=== PATIENT | male | born 1990 | race Caucasian/White ===

== ENCOUNTER 2020-04-08 09:00 | Outpatient (RCR) | payer OTHER, SELFPAY ==
[2020-03-10 09:31] VITALS: BMI 23.3
== END 2020-05-25 14:01 | disposition home or self-care (01) ==
LOC: ANHDMC 09:00
PROVIDERS: PCP Family Medicine; Visit Provider Internal Medicine Endocrinology, Diabetes & Metabolism
DX: E10.9 Type 1 diabetes mellitus without complications (principal); Z71.3 Dietary counseling and surveillance; Z71.89 Other specified counseling
CPT/HCPCS: 97802; G0108

== ENCOUNTER 2021-10-21 14:15 | Outpatient (RCR) | payer OTHER, SELFPAY ==
[2021-09-09 11:06] VITALS: BMI 25.2
[2021-09-09 11:10] VITALS: BMI 25.2
== END 2021-12-08 23:59 | disposition home or self-care (01) ==
LOC: ANHDMC 14:15
PROVIDERS: PCP Family Medicine; Visit Provider Nurse Practitioner Family
DX: E10.9 Type 1 diabetes mellitus without complications (principal); Z71.3 Dietary counseling and surveillance; Z71.89 Other specified counseling
CPT/HCPCS: 97802; G0108

== ENCOUNTER 2022-08-15 15:45 | Outpatient (CLI) | payer OTHER, SELFPAY ==
[2022-08-15 15:59] LABS: Basophils Absolute Auto 0.1 K/mm3 (0.0-0.1); Basophils Percent Auto 0.9 % (0.2-1.2); Eosinophils Absolute Auto 1.1 K/mm3 (0-0.3); Eosinophils Percent Auto 12.7 % (0-4.4); Hematocrit 40.6 % (42.0-52.0); Hemoglobin 14.6 g/dL (14.0-18.0); Immature Granulocyte Absolute 0.01 K/mm3 (0.00-0.031); Immature Granulocyte Percent A 0.1 % (0-0.5); Lymphocytes Percent Auto 22.9 % (18.3-44.2); Mean Corpuscular Hemoglobin 30.8 pg (26-34); Mean Corpuscular Volume 85.7 fl (80-100); Mean Platelet Volume 9.6 fl (7.4-10.4); Monocytes Absolute Auto 0.5 K/mm3 (0.1-0.6); Monocytes Percent Auto 5.9 % (2.6-8.5); Neutrophils Percent Auto 57.5 % (45.5-73.1); Platelet Count Result 303 k/mm3 (150-375); Red Blood Count 4.74 M/mm3 (4.6-6.20); Red Cell Distribution Width 11.4 % (11.5-14.5); White Blood Count 8.7 K/mm3 (4.5-10.0)
[2022-08-15 16:36] LABS: Alanine Aminotransferase 44 U/L (6-50); Albumin Level 4.7 g/dL (3.5-5.1); Alkaline Phosphatase 112 U/L (38-126); Anion Gap 8 mmol/L (8-16); Aspartate Amino Transferase 35 U/L (17-59); Bilirubin,Total 0.6 mg/dL (0.2-1.3); Blood Urea Nitrogen 20 mg/dL (9-20); Calcium 9.1 mg/dL (8.4-10.2); Carbon Dioxide 30 mmol/L (22-30); Chloride 100 mmol/L (98-107); Estimated Glomerular Filt Rate > 60; Glucose 187 mg/dL (65-110); Potassium 3.8 mmol/L (3.4-5.0); Sodium 138 mmol/L (137-145)
== END 2022-08-15 15:46 | disposition home or self-care (01) ==
LOC: ANHLAB 15:48
PROVIDERS: PCP Family Medicine; Visit Provider Internal Medicine Hematology & Oncology
DX: D72.119 Hypereosinophilic syndrome [HES], unspecified (principal)
CPT/HCPCS: 36415; 80053; 85025

== ENCOUNTER 2023-03-02 09:44 | Emergency (ER) | payer OTHER, SELFPAY ==
--- NOTE | ~2023-03-02 | XR_ITS ---
EXAMINATION: XR hand RT min 3V DATE: 03/02/2023 10:12 INDICATION: Crush injury to the right hand TECHNIQUE: Posteroanterior, oblique and lateral views of the right hand were obtained. COMPARISON: None. FINDINGS: Intra-articular fractures of the right first distal phalanx and at the head of the first proximal pha lanx. The distal phalangeal fractures coronal oriented extending to the palmar/ulnar side of the gina cular surface. There is mild angulation with mild palmar and ulnar displacement of the proximal aspec t of the fracture fragment resulting in approximately 2 mm fracture gap and 1 mm step-off at the gina cular surface. The proximal phalangeal fracture involves the ulnar condyle of the head extending obli quely from the central aspect of the articular surface to the ulnar side of the neck of the phalanx. The fracture is mildly comminuted with a separate very small minimally displaced fracture fragment in volving the dorsal margin of the central articular surface. There is minimal compression of the radia l side of the ulnar condylar fragment which remains in near-anatomic alignment. Old healed fracture d eformity at the dorsal base of the third distal phalanx. No other acute fractures identified. Joint s paces are normal. IMPRESSION: 1. Minimal to mildly displaced intra-articular fracture at the right first proximal and distal phalan ges. Reviewed, dictated and finalized at location A. IMPRESSION: 1. Minimal to mildly displaced intra-articular fracture at the right first prox imal and distal phalanges.
[2023-03-02 09:52] VITALS: BP 129/81; PULSE 97; RESP 20; TEMP 36.2; O2SAT 100
[2023-03-02] MEDS: HYDROcodone/acetaminophen (*CRX) 5-325 MG TABLET 1 TAB PO (11:38)
[2023-03-02] MEDS: WATER, STERILE FOR INJECTION 10 ML VIAL XX (11:39)
[2023-03-02] MEDS: ceFAZolin SODIUM 1 GM VIAL IM (11:42)
[2023-03-02] MEDS: TETANUS,DIPHTHERIA,AC PERTUSSIS ADULT (0.5 ML) BOOSTRIX IM (11:42)
--- NOTE | 2023-03-02 11:53 | ED.UPPEXIN ---
HPI - Extremity Injury (Upper) General Chief Complaint: Extremity Injury, Upper Stated Complaint: hand injury Time Seen by Provider: 03/02/23 10:11 Source: patient Mode of arrival: ambulatory Limitations: no limitations History of Present Illness HPI narrative: Patient is a 33-year-old male who presents to the ED with report of right hand injury. Patient reports he was at work this morning and got his hand caught in between the bucket of a backhoe and a slab of concrete. He sustained a crush injury to his right hand and thumb. Sustained a large laceration in the webspace between his first and second digits. No other injuries. He does report slight tingling in his fingers. No numbness. Tetanus status unknown. He has not taken anything for pain prior to arrival. Related Data Home Medications Medication Instructions Recorded Confirmed ascorbic acid (vitamin C) 500 mg mg PO 01/19/23 01/19/23 capsule cholecalciferol (vitamin D3) 50 50 mcg PO DAILY 01/19/23 01/19/23 mcg (2,000 unit) capsule ferrous sulfate 325 mg (65 mg 325 mg PO DAILY 01/19/23 01/19/23 iron) tablet (Feosol) multivitamin 1 tablet PO DAILY 01/19/23 01/19/23 Allergies Allergy/AdvReac Type Severity Reaction Status Date / Time No Known Allergies Allergy Verified 01/19/23 10:35 Review of Systems Review of Systems: CONSTITUTIONAL: Denies fever, chills, or sweats. SKIN: See HPI. MUSCULOSKELETAL: See HPI. NEUROLOGIC: See HPI. All systems reviewed & are unremarkable except as noted in HPI and below PMFSH Past Medical History Medical History (Updated 03/02/23 @ 14:00 by Melissa Paul PA-C) Idiopathic hypereosinophilic syndrome Long-term insulin use Open fracture of right thumb Positive glutamic acid decarboxylase antibody Type 1 diabetes mellitus without complication Vitamin D deficiency Surgical History Surgical History History of knee surgery History of shoulder surgery Family History Family History Other Diabetes mellitus Family history of malignant neoplasm Family history of migraine headaches Social History Social History Smoking status: Never smoker Alcohol intake: current Alcohol use details: occasionally Substance use: never Lack of Transportation: No Lack of Food: Never True Current Housing: I Have Housing Concerned About Future Housing: No Difficulty Paying Gas/Electric Bills: No Difficulty Paying for Meds: No Currently Unemployed: No Education: Bachelor's Degree Difficulty w/ Childcare or Family Care: No Living arrangements: with family Occupation/Education: occupation Gender identity (if verbalized by the patient): Male Sexual Orientation (if Verbalized by the Patient): Straight or Heterosexual Spiritual care concerns: No Exam Narrative: GENERAL: Well appearing, well-nourished, non-toxic, in no acute distress. HEAD: Normocephalic, atraumatic. NECK: Supple. No adenopathy, no masses. RESPIRATORY: Airway patent, respirations nonlabored. CARDIOVASCULAR: Regular rate and rhythm without murmurs, rubs, or gallops. Radial pulses 2+ and equal bilaterally. MUSCULOSKELETAL: Limited range of motion of right thumb due to pain, but still able to flex/abduct/extend. Tenderness to palpation diffusely throughout right thumb, worse distally and medially along finger. Large, at least 4cm laceration in webspace between first and second digits, somewhat jagged edges but overall approximates well. No significant active bleeding. No pulsatile bleeding. Sensation intact throughout all digits. Good capillary refill through digits. SKIN: Warm, dry, normal color. No rashes. NEURO: A&O X3. Speech clear. Cranial nerves II-XII grossly intact. Steady gait. No ataxic movements. PSYCHIATRIC: Appropriate mood an
--- NOTE | 2023-03-08 07:15 | PC.NURSE ---
LATE ENTRY. ON Feb VORB METAL FINGER SPLINT PER KAYLAH CHEEMA
== END 2023-03-02 14:15 | disposition home or self-care (01) ==
PROVIDERS: Emergency Provider Physician Assistant; PCP Family Medicine
DX: S62.511B Displaced fracture of proximal phalanx of right thumb, initial encounter for open fracture (principal); S62.511A Displaced fracture of proximal phalanx of right thumb, initial encounter for closed fracture; Z23 Encounter for immunization; E10.9 Type 1 diabetes mellitus without complications; E55.9 Vitamin D deficiency, unspecified; D72.110 Idiopathic hypereosinophilic syndrome [IHES]; W31.89XA Contact with other specified machinery, initial encounter
CPT/HCPCS: 12002; 29130; 73130; 90471; 90715; 96372; 99284; A9270; J0690

== ENCOUNTER 2023-03-20 09:49 | Outpatient (CLI) | payer OTHER, SELFPAY ==
--- NOTE | ~2023-03-20 | XR_ITS ---
XR finger 1st RT min 2V 03/20/2023 10:16 Indication: Right first finger pain Procedure: 3 views right first finger Comparison: 03/02/2023 Findings: There is an avulsion fracture of the first proximal phalangeal head. There is an intra-gina cular fracture of the proximal phalanx. There is a nondisplaced intra-articular fracture of the dista l phalanx. Fracture fragments in stable alignment. Impression: 1: Stable mildly displaced intra-articular fractures of the right first finger involving the distal a spect of the proximal phalanx and distal phalanx. Reviewed, dictated and finalized at location B. Impression: 1: Stable mildly displaced intra-articular fractures of the right first finger involving the distal aspect of the proximal phalanx and distal phalanx.
== END 2023-03-20 09:50 | disposition home or self-care (01) ==
PROVIDERS: PCP Family Medicine; Visit Provider Plastic Surgery
DX: S62.501B Fracture of unspecified phalanx of right thumb, initial encounter for open fracture (principal); X58.XXXA Exposure to other specified factors, initial encounter
CPT/HCPCS: 73140

== ENCOUNTER 2023-04-10 09:05 | Outpatient (CLI) | payer OTHER, SELFPAY ==
--- NOTE | ~2023-04-10 | XR_ITS ---
XR finger 1st RT min 2V DATE: 04/10/2023 09:24 INDICATION: Open fracture 6 weeks ago TECHNIQUE: 3 views COMPARISON: 03/20/2023 right first digit 03/02/2023 right hand FINDINGS: There is healing at the fracture at the head of the proximal phalanx and base of the distal phalanx of the first digit, the fracture lines are partially obliterated, with residual fracture def ormity of the base of the distal phalanx. No other fracture or dislocation or other significant bony or soft tissue abnormality. IMPRESSION: Advanced healing of fracture of the head of the proximal phalanx and base of the distal p halanx Reviewed, dictated and finalized at location B. IMPRESSION: Advanced healing of fracture of the head of the proximal phalanx an d base of the distal phalanx
== END 2023-04-10 09:06 | disposition home or self-care (01) ==
PROVIDERS: PCP Family Medicine; Visit Provider Plastic Surgery
DX: S62.501D Fracture of unspecified phalanx of right thumb, subsequent encounter for fracture with routine healing (principal); X58.XXXD Exposure to other specified factors, subsequent encounter
CPT/HCPCS: 73140

== ENCOUNTER 2023-05-19 11:15 | Outpatient (RCR) | payer OTHER, SELFPAY ==
--- NOTE | 2023-03-14 13:06 | OTOPEVAL1 ---
Assessment and note entered by RODRIGO Junior/Fernanda, CHT Evaluation Information Assessment Status Evaluation Diagnosis Right thumb fracture Subjective Information Patient referred for custom thumb spica orthotic. He is right handed. Pt's proximal and distal phalanx were fractured in a crush injury on . Reported Pain Level Pain Score 4: Self Report Assessment OT Clinical Summary Patient referred to outpatient OT with right thumb fracture. He presents today for fabrication of a custom thumb spica orthotic. A well-fitting, long thumb spica orthotic was fabricated to include the distal phalanx of the thumb. He demonstrates good understanding of wear time - at all times, except for daily hand hygiene. No follow up visits scheduled at this time, but plan to leave his care plan open x4 weeks to allow him to return for any splinting adjustments PRN. Plan of Care Interventions Check Out for Orthotic/Pr OT Services Indicated Yes Treatment Frequency and 0-1x/week for 4 weeks Duration These treatments will address the objective and functional deficits as defined above. The patient will be advanced safely and appropriately in order for the patient to progress towards his/her prior level of function. Additional exercises will be introduced and as well as a comprehensive home exercise program upon discharge, if needed, ?to ensure carryover of functional gains achieved in the clinic. This treatment plan has been reviewed and agreement upon by the patient.
--- NOTE | 2023-04-12 11:43 | OTOPPROG ---
Assessment and note entered by Shahid Cronin, RODRIGO/Fernanda, CHT Progress Update 04/12/23 Diagnosis Right thumb fracture Subjective Information Pt's proximal and distal phalanx of the right thumb were fractured in a crush injury on 03/02/23. He is s/p immobilization and ready to begin formal therapy. He states he has been trying to use the thumb. He is unable to pinch and open bags. Assessment OT Clinical Summary Patient referred to outpatient OT x6 weeks out from right thumb fracture. He has been instructed in ROM HEP and demonstrates excellent understanding of the exercises. Continued skilled OT indicated to progress HEP, for functional therapeutic exercises/activities, and use of modalities to facilitate optimal functional use of the right thumb/hand. Plan of Care Interventions Therapeutic Exercise,Manual Therapy,Therapeutic Activities,Paraffin OT Services Indicated Yes Treatment Frequency and 1x/week for 4 weeks Duration These treatments will address the objective and functional deficits as defined above. The patient will be advanced safely and appropriately in order for the patient to progress towards his/her prior level of function. Additional exercises will be introduced and as well as a comprehensive home exercise program upon discharge, if needed, ?to ensure carryover of functional gains achieved in the clinic. This treatment plan has been reviewed and agreement upon by the patient.
--- NOTE | 2023-04-12 11:43 | OPREHPOC ---
Outpatient Therapy Plan of Care This is a Multidisciplinary Plan of Care that may contain components documented by all disciplines (PT, OT, and ST.) OT Problem 1 OT Problem #1 Knowledge Deficit OT Goal 1 Goal 1. Patient to be independent with splint wearing schedule. 2. Patient to continue to report good splint fit. ---OT POC UPDATE 04/12/23--- 1. Met; Splint is D/C'd; D/C goal 2. Met; Splint is D/C'd; D/C goal New Knowledge Deficit Goal: 1. Patient to be independent with instructed materials. Target Visit 6 OT Problem 2 OT Problem #2 Impaired Range of Motion OT Goal 1 Goal ---OT POC UPDATE 04/12/23--- New ROM Goals: 1. Patient to be able to touch the base of digit V with the tip of the right thumb. 2. Patient to be able to flex the right thumb IP joint 50 degrees. Target Visit 6 OT Goal 1 Goal ---OT POC UPDATE 04/12/23--- New Strength Goal: 1. Patient to be able to complete strategic marketing leader and pinch strengthening with at least yellow theraputty x5 minutes without pain. Target Visit 6
--- NOTE | 2023-05-09 12:43 | PCOTNOTE ---
Patient called and cancelled due to not feeling well.
--- NOTE | 2023-05-19 11:47 | OTOPDC ---
Assessment and note entered by Shahid Cronin, SANJUANAR/Fernanda, T Discharge Summary 05/19/23 Diagnosis Right thumb fracture Subjective Information Pt's proximal and distal phalanx of the right thumb were fractured in a crush injury on 03/02/23. He is right handed. He reports residual stiffness , weakness, and pain with pinching/use. He states he is now able to pinch and open bags about 80% of the time. Reports there are times when he picks up items and he has to drop them because of the pain. Assessment OT Clinical Summary Patient presents today, ~9 weeks following right thumb fracture. He continues to demonstrate stiffness at the IP joint, progressing only 5 more degrees in the last month, measuring a 30 deg. bend. Passively he is able to achieve 40 degrees. Emphasized continuation of stretching exercises followed by pinches into the putty with the focus on IP flexion. He demonstrates excellent understanding of all materials. Discharging today with patient independent with HEP.
== END 2023-05-19 14:44 | disposition home or self-care (01) ==
LOC: ANHOT 11:15
PROVIDERS: PCP Family Medicine; Visit Provider Plastic Surgery
DX: S62.501B Fracture of unspecified phalanx of right thumb, initial encounter for open fracture (principal)
CPT/HCPCS: 97018; 97110; 97140; 97165; L3806

== ENCOUNTER 2023-08-07 16:43 | Outpatient (CLI) | payer OTHER, SELFPAY ==
--- NOTE | ~2023-08-07 | XR_ITS ---
EXAM: XR finger 1st RT min 2V DATE: 08/07/2023 16:52 HISTORY: S62.501B - Fracture of unspecified phalanx of right thumb... . COMPARISON: 04/10/2023. FINDINGS: Normal mineralization. Continued evolving healing change of the fractures at the distal en d of the right first proximal phalanx and base of the right first distal phalanx No new acute fractur e or dislocation. No lytic or blastic lesion. Mild degenerative change in the thumb. No erosion or pe riosteal change. Soft tissues within normal limits. IMPRESSION: Continued evolving healing of the right proximal and distal phalanx fractures. Reviewed, dictated and finalized at location K. AXIAL REACTOR OPERATOR
== END 2023-08-07 16:44 | disposition home or self-care (01) ==
LOC: ANHIMG 16:44
PROVIDERS: PCP Family Medicine; Visit Provider Physician Assistant Surgical
DX: S62.501D Fracture of unspecified phalanx of right thumb, subsequent encounter for fracture with routine healing (principal); X58.XXXD Exposure to other specified factors, subsequent encounter
CPT/HCPCS: 73140

== ENCOUNTER 2023-08-11 16:18 | Outpatient (CLI) | payer OTHER, SELFPAY ==
--- NOTE | ~2023-08-11 | CT_ITS ---
EXAMINATION: CT hand RT wo con DATE: 08/11/2023 16:40 INDICATION: Fracture of unspecified phalanx of right thumb. TECHNIQUE: Computed tomography (CT) of the right hand was performed without intravenous contrast. Aut omated exposure control and iterative reconstruction technique were employed. The dose-length product was 536.91 mGy-cm. COMPARISON: Right thumb radiographs 08/07/2023, 03/20/2023 FINDINGS: Bone alignment is normal. No acute fracture. There is an old healed fracture of base of thi rd distal phalanx. There are old healed fracture deformities of the head of first proximal phalanx an d base of first distal phalanx. There is severe nonuniform joint space narrowing of first interphalan geal joint. There are small calcifications at radial aspect of first interphalangeal joint. IMPRESSION: 1. 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 Reviewed, dictated and finalized at location A. ITY ASSURANCE SUPERVISOR TRIM
== END 2023-08-11 16:19 | disposition home or self-care (01) ==
LOC: ANHIMG 16:18
PROVIDERS: PCP Family Medicine; Visit Provider Physician Assistant Surgical
DX: S62.501B Fracture of unspecified phalanx of right thumb, initial encounter for open fracture (principal); X58.XXXA Exposure to other specified factors, initial encounter; M19.041 Primary osteoarthritis, right hand
CPT/HCPCS: 73200

== ENCOUNTER 2023-12-28 05:52 | Day surgery (SDC) | payer OTHER, SELFPAY ==
[2023-12-18 11:55] VITALS: BMI 28.8
--- NOTE | 2023-12-19 13:23 | PC.NURSE ---
1230; NO NEED FOR PREOP BMP FOR LUANN WAYNE PER DR WASHINGTON.
--- NOTE | ~2023-12-28 | XR_ITS ---
XR surgery orthopedic Indication: Right thumb flexor tenolysis TECHNIQUE: Fluoroscopy used during Right thumb flexor tenolysis performed by [Nikkie suazo MD] on 12/28/2023. 29 seconds of fluoroscopy time with 3 fluoroscopic images captured. FINDINGS: Correlate with procedure note. IMPRESSION: Fluoroscopy used during Right thumb flexor tenolysis. Reviewed, dictated and finalized at location B.
[2023-12-28 06:30] VITALS: BP 136/75; PULSE 68; RESP 16; TEMP 36.8; O2SAT 98; BMI 28.2
[2023-12-28 06:54] LABS: Glucose Point of Care 108 mg/dl (65-105)
--- NOTE | 2023-12-28 07:01 | P.HPUP_ITS ---
History and Physical Update Update Date/Time: 12/28/23 07:01 Patient seen and examined in pre-operative holding area. No interval change in medical history or symptoms. Patient recalls previous discussion of benefits and alternatives to procedure. Continues to desire to proceed with right thumb exploration, possible capsulotomy, possible tenolysis, possible ostectomy . Reviewed procedure, post-op expectations and risks including but not limited to bleeding, infection, injury to tendon/nerve/vessel, decreased hand function, stiffness, RSD, no change or worsening of symptoms. I discussed the possible use of assistants and their participation in the case. Patient stated unders tanding and signed the consent form wishing to proceed.
--- NOTE | 2023-12-28 07:03 | P.OP_ITS ---
Procedure Note - Detailed Date of Procedure 12/28/23 Pre-op Diagnosis Fracture malunion and stiffness right thumb distal phalanx Post-op Diagnosis Same Procedure Performed right thumb exploration, possible capsulotomy, possible tenolysis, possibleostectomy . Surgeon Nikkie Ledezma MD Adjustment Supervisor reshma ortiz pa-c Anesthesia MAC Description of Procedure INFORMED CONSENT: The patient was seen and examined and marked in the pre-op area.? The patient signed the consent form. PROCEDURE IN DETAIL:The patient taken back to OR on the stretcher in supine position. Time out performed with anesthesia, surgeon and staff agreeing on patient's name site and surgery to be performed SCDs were placed on the lower extremities and inflated. A tourniquet was placed on {right} upper extremity and antibiotics given IV After anesthesia administered sedation I injected {4}cc 1%lido and 0.5% marcaine plain for digital block in the palm The?{right upper extremity}?was prepped and draped in sterile fashion the??{right upper extremity/} was? exsanguinated with Esmarch bandage and tourniquet inflated to 250mmHg Proceeded with making a Penny incision on the volar aspect of the right thumb over the IP joint with a 15 blade scalpel through skin and dermis. Littler scissors were used to spread down to the flexor tendon sheath. There was notable adherence of the skin flap to the flexor sheath. I made an incision in the distal portion of the A2 john and flexor sheath distally with a 15 blade scalpel. This was reflected to expose the intact FPL tendon. tenolysis was performed of the FPL off the volar plate. Ragnell retractor was used to retract the tendon to expose the volar plate. The volar plate was notably thickened and tight. I proceeded with release of the volar plate from its proximal insertion elevating it distally to expose the IP joint. Visualizing the articular surface there was a small prominent healed bone fragment or osteophyte that appeared to be creating a partial bony block with attempted flexion. This proud edge of the volar distal phalanx articular surface was rongeured until smooth. Mini C-arm fluoroscopy was used to visualize the joint which appeared reasonably congruent the with traumatic deformity. There appeared to be improved range of motion with flexion. It now appeared that around 50? of flexion was possible. I irrigated with normal saline. Using a 15 blade scalpel i thinned the volar plate with tangential excision to debulk it. I proceeded with suturing the volar plate back to the proximal phalanx with 4-0 Vicryl. This did not affect the range of motion. I repaired the flexor sheath/A2 john with 4-0 Vicryl suture. Using a Ragnell retractor to withdraw the FPL tendon proximally was able to achieve similar flexion range of motion. I irrigated with normal saline and closed skin with 4-0 chromic. A dressing of xeroform, 4x4, keeley and asher after the tourniquet was let down noting the hand was warm and well perfused. The patient was then awaken from anesthesia and transferred to the recovery room in stable condition.? Complications - none EBL- 0cc Disposition - home in stable conditions reshma ortiz pa-c was essential for positioniing, retraction, closure and dressing placement G Billing Surgery - Charge Forward: Surgery Billing ([id number] same for reshma whitney )
--- NOTE | 2023-12-28 07:03 | PM.HPGS ---
History of Present Illness History of Present Illness Chief complaint: Fracture of unspecified Phalanx Right Thumb Narrative: Patient seen and examined in pre-operative holding area. No interval change in medical history or symptoms. Patient recalls previous discussion of benefits and alternatives to procedure. Continues to desire to proceed with right thumb exploration, possible capsulotomy, possibletenolysis, possibleostectomy . Reviewed procedure, post-op expectations and risks including but not limited to bleeding, infection, injury to tendon/nerve/vessel, decreased hand function, stiffness, RSD, no change or worsening of symptoms. I discussed the possible use of assistants and their participation in the case. Patient stated understanding and signed the consent form wishing to proceed. Review of Systems Review of Systems: All systems reviewed & are unremarkable except as noted in HPI and below PMFSH Past Medical History Medical History Idiopathic hypereosinophilic syndrome Long-term insulin use Open fracture of right thumb Positive glutamic acid decarboxylase antibody Type 1 diabetes mellitus without complication Vitamin D deficiency Surgical History Surgical History History of knee surgery History of shoulder surgery Family History Family History Other Diabetes mellitus Family history of malignant neoplasm Family history of migraine headaches Social History Social History Smoking status: Never smoker Second hand tobacco smoke exposure: No Alcohol intake: current Drinks per week: 5 Alcohol use details: occasionally Substance use: never Substance use type: does not use Lack of Transportation: No Lack of Food: Never True Current Housing: I Have Housing Concerned About Future Housing: No Difficulty Paying Gas/Electric Bills: No Difficulty Paying for Meds: No Currently Unemployed: No Education: Bachelor's Degree Difficulty w/ Childcare or Family Care: No Living arrangements: with family Occupation/Education: occupation Gender identity (if verbalized by the patient): Male Sexual Orientation (if Verbalized by the Patient): Straight or Heterosexual Spiritual care concerns: No Meds Home Medications and Allergies Home Medications Medication Instructions Recorded Confirmed Type blood ketone glucose monitor #1 ea 02/03/20 11/30/23 Rx blood-glucose meter #1 ea 03/09/20 11/30/23 Rx lancets 33 gauge (BD Ultra Fine #300 ea 03/09/20 11/30/23 Rx Lancets) glucagon 3 mg/actuation nasal spray 3 mg intranasal ONCE #2 ea 08/29/22 12/28/23 Rx ascorbic acid (vitamin C) 500 mg 500 mg PO DAILY 01/19/23 12/28/23 History capsule cholecalciferol (vitamin D3) 50 50 mcg PO DAILY 01/19/23 12/28/23 History mcg (2,000 unit) capsule ferrous sulfate 325 mg (65 mg 325 mg PO DAILY 01/19/23 12/28/23 History iron) tablet (Feosol) multivitamin 1 tablet PO DAILY 01/19/23 12/28/23 History blood-glucose meter,continuous #1 ea 11/30/23 11/30/23 Rx (Dexcom G6 Extraction Operator) blood-glucose sensor (Dexcom G6 #3 ea 11/30/23 11/30/23 Rx Sensor device) blood-glucose transmitter (Dexcom #1 ea 11/30/23 11/30/23 Rx G6 Transmitter device) insulin degludec 100 unit/mL 30 unit (0.3 mL) subcut DAILY PRN 11/30/23 12/28/23 Rx subcutaneous solution (Tresiba insulin pump malfunction #10 mL U-100 Insulin) insulin lispro 100 unit/mL See Rx Instructions .Route 11/30/23 12/28/23 Rx subcutaneous solution (Humalog .COMPLEX #90 mL U-100 Insulin) insulin pump cart,automated,BT #60 ea 11/30/23 11/30/23 Rx (Omnipod 5 G6 Pods (Gen 5) subcutaneous cartridge) Allergies Allergy/AdvReac Type Severity Reaction Status Date / Time No Known Allergies Allergy Verified 0
--- NOTE | 2023-12-28 07:19 | WPDANESEPPF ---
Anes - Initial Pre Proc Eval Procedure: Operation Date: 12/28/23 07:30 Proposed Procedures p Right Thumb Flexor Tenolysis, Possible Osteophyte Excision - Nikkie Ledezma MD Date/Time: 12/28/23 07:19 Surgeon: Nikkie Ledezma MD Pre Op Diagnosis: right thumb fracture Pre Op Diagnosis: Fracture of unspecified Phalanx Right Thumb Patient Data Age: 33 Gender: M Height: 1.83 m Weight: 94.4 kg Last Vital Signs Temp 36.8 C 12/28/23 06:30 Pulse 68 12/28/23 06:30 Resp 16 12/28/23 06:30 BP 136/75 12/28/23 06:30 Pulse Ox 98 12/28/23 06:30 O2 Del Method Room Air 12/28/23 06:30 Allergies Allergy/AdvReac Type Severity Reaction Status Date / Time No Known Allergies Allergy Verified 12/28/23 06:18 Home Medications Medication Instructions Recorded Confirmed Type blood ketone glucose monitor #1 ea 02/03/20 11/30/23 Rx blood-glucose meter #1 ea 03/09/20 11/30/23 Rx lancets 33 gauge (BD Ultra Fine #300 ea 03/09/20 11/30/23 Rx Lancets) glucagon 3 mg/actuation nasal spray 3 mg intranasal ONCE #2 ea 08/29/22 12/28/23 Rx ascorbic acid (vitamin C) 500 mg 500 mg PO DAILY 01/19/23 12/28/23 History capsule cholecalciferol (vitamin D3) 50 50 mcg PO DAILY 01/19/23 12/28/23 History mcg (2,000 unit) capsule ferrous sulfate 325 mg (65 mg 325 mg PO DAILY 01/19/23 12/28/23 History iron) tablet (Feosol) multivitamin 1 tablet PO DAILY 01/19/23 12/28/23 History blood-glucose meter,continuous #1 ea 11/30/23 11/30/23 Rx (Dexcom G6 Edge Bander Hand) blood-glucose sensor (Dexcom G6 #3 ea 11/30/23 11/30/23 Rx Sensor device) blood-glucose transmitter (Dexcom #1 ea 11/30/23 11/30/23 Rx G6 Transmitter device) insulin degludec 100 unit/mL 30 unit (0.3 mL) subcut DAILY PRN 11/30/23 12/28/23 Rx subcutaneous solution (Tresiba insulin pump malfunction #10 mL U-100 Insulin) insulin lispro 100 unit/mL See Rx Instructions .Route 11/30/23 12/28/23 Rx subcutaneous solution (Humalog .COMPLEX #90 mL U-100 Insulin) insulin pump cart,automated,BT #60 ea 11/30/23 11/30/23 Rx (Omnipod 5 G6 Pods (Gen 5) subcutaneous cartridge) Laboratory Tests 12/28/23 06:52 POC Capillary Glucose 108 H mg/dl (65-105) Patient hx anesthesia problems: none Family hx anesthesia problems: none Results Review: All pre-operative results and documents have been reviewed as part of the pre-operative evaluation. [facility] Past Medical History Medical History Idiopathic hypereosinophilic syndrome Long-term insulin use Open fracture of right thumb Positive glutamic acid decarboxylase antibody Type 1 diabetes mellitus without complication Vitamin D deficiency Surgical History Surgical History History of knee surgery History of shoulder surgery Family History Family History Other Diabetes mellitus Family history of malignant neoplasm Family history of migraine headaches Social History Social History Smoking status: Never smoker Second hand tobacco smoke exposure: No Alcohol intake: current Drinks per week: 5 Alcohol use details: occasionally Substance use: never Substance use type: does not use Lack of Transportation: No Lack of Food: Never True Current Housing: I Have Housing Concerned About Future Housing: No Difficulty Paying Gas/Electric Bills: No Difficulty Paying for Meds: No Currently Unemployed: No Education: Bachelor's Degree Difficulty w/ Childcare or Family Care: No Living arrangements: with family Occupation/Education: occupation Gender identity (if verbalized by the patient): Male Sexual Orientation (if Verbalized by the Patient): Straight or Heterosexual Spiritual care concerns: No Anes - Charlene
[2023-12-28] MEDS: LACTATED RINGERS 1,000 ML 30 ML IV CONT (07:24)
[2023-12-28] MEDS: ceFAZolin SODIUM 2 GM/20 ML SW SYRINGE IV PUSH (07:29)
[2023-12-28] MEDS: LIDOCAINE HCL 1% LOCAL INJ 10 ML VIAL INFILTRATE (07:34)
[2023-12-28] MEDS: BUPivacaine HCL 0.5% 10 ML AMP INFILTRATE (07:34)
[2023-12-28 08:24] VITALS: BP 105/50; PULSE 65; RESP 16; TEMP 36.3; O2SAT 99
[2023-12-28 08:34] VITALS: BP 119/57; PULSE 71; RESP 16; O2SAT 98
[2023-12-28 08:44] VITALS: BP 118/70; PULSE 76; RESP 16; O2SAT 97
[2023-12-28 08:45] LABS: Glucose Point of Care 85 mg/dl (65-105)
--- NOTE | 2023-12-28 09:33 | WPDANESPN ---
Anes - Prog Note Post-Op Date/Time: 12/28/23 09:33 Cardiovascular status: normal Respiratory status: normal Airway patency: baseline Mental status: baseline Post-Op hydration status: normal Vital Signs: Last Vital Signs Temp 36.3 C L 12/28/23 08:24 Pulse 76 12/28/23 08:44 Resp 16 12/28/23 08:44 BP 118/70 12/28/23 08:44 Pulse Ox 97 12/28/23 08:44 O2 Del Method Room Air 12/28/23 08:44 Pain Score (VAS): 0/10 I/O: Intake & Output 12/27/23 12/28/23 12/28/23 23:59 07:59 15:59 Intake Total 50 Balance 50 12/28/23 12/28/23 06:52 08:41 POC Capillary Glucose 108 H 85 Patient Feedback: Patient satisfied with anesthetic care.
== END 2023-12-28 09:02 | disposition home or self-care (01) ==
PROVIDERS: PCP Family Medicine; Visit Provider Plastic Surgery
PROC: (CPT 25447; principal; 2023-12-28 07:30)
DX: S62.511 Displaced fracture of proximal phalanx of right thumb (principal); M25.641 Stiffness of right hand, not elsewhere classified
CPT/HCPCS: 26440; 26210; 99199

== ENCOUNTER 2024-03-12 09:44 | Outpatient (CLI) | payer OTHER, SELFPAY ==
--- NOTE | ~2024-03-12 | XR_ITS ---
XR finger 1st RT min 2V Ordering provider: Magalys Lim PA-C History: . Fracture of unspecified phalanx of right thumb . Comparison: August 07, 2023 FINDINGS: BONES: No acute fracture or dislocation. JOINT SPACES: Normal. SOFT TISSUES: Normal. IMPRESSION: No acute osseous abnormality. Reviewed, dictated and finalized at location A.
== END 2024-03-12 09:45 | disposition home or self-care (01) ==
PROVIDERS: PCP Family Medicine; Visit Provider Physician Assistant Surgical
DX: S62.501B Fracture of unspecified phalanx of right thumb, initial encounter for open fracture (principal); X58.XXXA Exposure to other specified factors, initial encounter
CPT/HCPCS: 73140

== ENCOUNTER 2024-08-12 01:56 | Day surgery (SDC) | payer OTHER, SELFPAY ==
[2024-07-30 13:49] VITALS: BMI 27.8
[2024-08-12 13:16] VITALS: BP 128/76; PULSE 69; RESP 18; TEMP 36.1; O2SAT 99
[2024-08-12] MEDS: LACTATED RINGERS 1,000 ML 150 ML IV CONT (13:27)
--- NOTE | 2024-08-12 13:46 | WPDANESEPPF ---
Anes - Initial Pre Proc Eval Procedure: Operation Date: 08/12/24 14:30 Proposed Procedures p Esophagogastroduodenoscopy - Indio Dotson MD Date/Time: 08/12/24 13:46 Surgeon: Indio Dotson MD Pre Op Diagnosis: Eosinophilia,Dyshagia Patient Data Age: 34 Gender: M Height: 1.85 m Weight: 96.3 kg Last Vital Signs Temp 36.1 C L 08/12/24 13:16 Pulse 69 08/12/24 13:16 Resp 18 08/12/24 13:16 BP 128/76 08/12/24 13:16 Pulse Ox 99 08/12/24 13:16 O2 Del Method Room Air 08/12/24 13:16 Allergies Allergy/AdvReac Type Severity Reaction Status Date / Time No Known Allergies Allergy Verified 08/12/24 13:15 Home Medications ?Medication ?Instructions ?Recorded ?Confirmed ?Type blood ketone glucose monitor #1 ea 02/03/20 07/30/24 Rx blood-glucose meter #1 03/09/20 07/30/24 Rx lancets 33 gauge (BD Ultra Fine #300 ea 03/09/20 07/30/24 Rx Lancets) glucagon 3 mg/actuation nasal spray 3 mg intranasal ONCE #2 ea 08/29/22 07/30/24 Rx ascorbic acid (vitamin C) 500 mg 500 mg PO DAILY 01/19/23 08/12/24 History capsule cholecalciferol (vitamin D3) 50 50 mcg PO DAILY 01/19/23 08/12/24 History mcg (2,000 unit) capsule ferrous sulfate 325 mg (65 mg 325 mg PO DAILY 01/19/23 08/12/24 History iron) tablet (Feosol) multivitamin 1 tablet PO DAILY 01/19/23 08/12/24 History blood-glucose meter,continuous #1 ea 11/30/23 07/30/24 Rx (Dexcom G6 As400 Programmer) blood-glucose sensor (Dexcom G6 #3 ea 11/30/23 07/30/24 Rx Sensor device) blood-glucose transmitter (Dexcom #1 ea 11/30/23 07/30/24 Rx G6 Transmitter device) insulin pump cart,automated,BT #60 11/30/23 07/30/24 Rx (Omnipod 5 G6 Pods (Gen 5) subcutaneous cartridge) blood sugar diagnostic (OneTouch #100 ea 07/29/24 07/30/24 Rx Verio test strips) blood-glucose meter (OneTouch #1 ea 07/29/24 07/30/24 Rx Verio Flex Start kit) insulin lispro 100 unit/mL See Rx Instructions .Route 07/29/24 08/12/24 Rx subcutaneous solution (Humalog .COMPLEX #90 mL U-100 Insulin) lancets 33 gauge (OneTouch Delica #100 ea 07/29/24 07/30/24 Rx Plus Lancet) urine glucose-ketones test #50 ea 07/29/24 07/30/24 Rx Tresiba FlexTouch U-200 200 30 unit (0.15 mL) subcut DAILY PRN 07/30/24 08/12/24 Rx unit/mL (3 mL) subcutaneous pen insulin pump malfunction #9 mL (insulin degludec) Patient hx anesthesia problems: none Family hx anesthesia problems: none Results Review: All pre-operative results and documents have been reviewed as part of the pre-operative evaluation. 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 Surgical History Surgical History History of knee surgery History of shoulder surgery Family History Family History Other Diabetes mellitus Family history of malignant neoplasm Family history of migraine headaches Social History Social History Social History: Caffeine-coffee Smoking status: Never smoker Second hand tobacco smoke exposure: No Alcohol intake: current Drinks per week: 5 Alcohol use details: occasionally Substance use: never Substance use type: does not use Lack of Transportation: No Lack of Food: Never True Current Housing: I Have Housing Concerned About Future Housing: No Difficulty Paying Gas/Electric Bills: No Difficulty Paying for Meds: No Currently Unemployed: No Education: Bachelor's Degree Difficulty w/ Childcare or Family Care: No Living arrangements: with family Occupation/Education: occupation Gender identity (if verbalized by the patient): Male Sexual Orientation (if Verbalized by the Patient): Straight or Heterosexual Spiritual care concerns: No Anes - Eval Final PreProcedure Day of Procedure 08/12/24 13:46 Patient weight: overweight Heart: regular rate and rhythm Lungs: clear to auscultation Airway: Mallampati scale class II Neurological: alert and oriented Last oral intake: >/= 8 hours ASA classification: II Emergent: no Anesthetic plan: proceed Anesthesia type and monitoring: general GIVS and standard monitoring Results Review: All pre-operative results and documents have been reviewed as part of the pre-operative evaluation. Informed Consent: The patient's anesthetic plan and its attendant risks and benefits were discussed with the patient/family/POA. Questions were solicited and answers provided to the satisfaction of the patient/family/POA.
--- NOTE | 2024-08-12 14:05 | PM.HPGS ---
History of Present Illness History of Present Illness Consent: Risks, benefits, and alternatives have been discussed and questions answered. Patient agrees to proceed with procedure. Chief complaint: Eosinophilia,Dyshagia Narrative: Michael Person is a 34 year old male with dysphagia, had EGD about 15 years ago. Also diagnosed in the past with high eosinophils and treated previously with steroids, he is not receiving any medication now. 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 Surgical History Surgical History History of knee surgery History of shoulder surgery Family History Family History Other Diabetes mellitus Family history of malignant neoplasm Family history of migraine headaches Social History Social History Social History: Caffeine-coffee Smoking status: Never smoker Second hand tobacco smoke exposure: No Alcohol intake: current Drinks per week: 5 Alcohol use details: occasionally Substance use: never Substance use type: does not use Lack of Transportation: No Lack of Food: Never True Current Housing: I Have Housing Concerned About Future Housing: No Difficulty Paying Gas/Electric Bills: No Difficulty Paying for Meds: No Currently Unemployed: No Education: Bachelor's Degree Difficulty w/ Childcare or Family Care: No Living arrangements: with family Occupation/Education: occupation Gender identity (if verbalized by the patient): Male Sexual Orientation (if Verbalized by the Patient): Straight or Heterosexual Spiritual care concerns: No Meds Home Medications and Allergies Home Medications ?Medication ?Instructions ?Recorded ?Confirmed ?Type blood ketone glucose monitor #1 02/03/20 07/30/24 Rx blood-glucose meter #1 03/09/20 07/30/24 Rx lancets 33 gauge (BD Ultra Fine #300 ea 03/09/20 07/30/24 Rx Lancets) glucagon 3 mg/actuation nasal spray 3 mg intranasal ONCE #2 08/29/22 07/30/24 Rx ascorbic acid (vitamin C) 500 mg 500 mg PO DAILY 01/19/23 08/12/24 History capsule cholecalciferol (vitamin D3) 50 50 mcg PO DAILY 01/19/23 08/12/24 History mcg (2,000 unit) capsule ferrous sulfate 325 mg (65 mg 325 mg PO DAILY 01/19/23 08/12/24 History iron) tablet (Feosol) multivitamin 1 tablet PO DAILY 01/19/23 08/12/24 History blood-glucose meter,continuous #1 ea 11/30/23 07/30/24 Rx (Dexcom G6 Cutting Machine Operator Helper) blood-glucose sensor (Dexcom G6 #3 ea 11/30/23 07/30/24 Rx Sensor device) blood-glucose transmitter (Dexcom #1 ea 11/30/23 07/30/24 Rx G6 Transmitter device) insulin pump cart,automated,BT #60 ea 11/30/23 07/30/24 Rx (Omnipod 5 G6 Pods (Gen 5) subcutaneous cartridge) blood sugar diagnostic (OneTouch #100 ea 07/29/24 07/30/24 Rx Verio test strips) blood-glucose meter (OneTouch #1 ea 07/29/24 07/30/24 Rx Verio Flex Start kit) insulin lispro 100 unit/mL See Rx Instructions .Route 07/29/24 08/12/24 Rx subcutaneous solution (Humalog .COMPLEX #90 mL U-100 Insulin) lancets 33 gauge (OneTouch Delica #100 ea 07/29/24 07/30/24 Rx Plus Lancet) urine glucose-ketones test #50 ea 07/29/24 07/30/24 Rx Tresiba FlexTouch U-200 200 30 unit (0.15 mL) subcut DAILY PRN 07/30/24 08/12/24 Rx unit/mL (3 mL) subcutaneous pen insulin pump malfunction #9 mL (insulin degludec) Allergies Allergy/AdvReac Type Severity Reaction Status Date / Time No Known Allergies Allergy Verified 08/12/24 13:15 Vital Signs Vital Signs - 24 hr 08/12/24 13:16 Temperature 97 F L Pulse Rate 69 Respiratory Rate 18 Blood Pressure 128/76 Pulse Oximetry 99 Oxygen Delivery Room Air Exam Const: General: comfortable and no acute distress HENMT: Face/Nose/Sinus: Normal nares present Eyes: General: appearance normal, both eyes and all related structures Neck: Neck: no JVD Resp: Auscultation: clear to auscultation bilaterally Cardio: Rate: regular rate Rhythm: regular rhythm GI: Inspection: non-distended GI Palp: Yes Soft to palpation Skin: General skin exam: normal color Neuro: General: gait normal Speech: normal speech Extrem: General: normal to inspection Psych: Mental Status: mental status grossly normal Assessment and Plan Assessment and plan (1) Dysphagia: Code(s): R13.10 - Dysphagia, unspecified Status: Acute Assessment and Plan: egd with bx, ? EoE
[2024-08-12 14:20] VITALS: BP 130/72; PULSE 83; RESP 16; O2SAT 99
[2024-08-12 14:30] VITALS: BP 127/74; PULSE 76; RESP 18; O2SAT 99
== END 2024-08-12 14:43 | disposition home or self-care (01) ==
PROVIDERS: PCP Family Medicine; Referring Provider Physician Assistant Medical; Visit Provider Internal Medicine Gastroenterology
PROC: 0DJ08ZZ Inspection of Upper Intestinal Tract, Via Natural or Artificial Opening Endoscopic (ICD-10-PCS; CPT 43239; principal; 2024-08-12 14:30)
DX: K20.0 Eosinophilic esophagitis (principal)
CPT/HCPCS: 43239; 88305; J2003; J2704; J7120

== ENCOUNTER 2025-04-01 08:20 | Emergency (ER) | payer OTHER, SELFPAY ==
--- NOTE | ~2025-04-01 | XR_ITS ---
EXAMINATION: XR finger 3rd RT min 2V, 04/01/2025 9:03 CDT HISTORY: soft ball injury. pain distal, pain since last night COMPARISON: No comparisons available. Findings: Nondisplaced fracture distal aspect distal phalanx No significant degenerative changes. Soft tissues unremarkable. Impression: Fracture detailed above Reviewed, dictated and finalized at location P. Impression: Fracture detailed above
[2025-04-01 08:32] VITALS: BP 137/81; PULSE 79; RESP 16; TEMP 36.6; O2SAT 99
--- NOTE | 2025-04-01 08:51 | ED.UPPEXIN ---
HPI - Extremity Injury (Upper) General Chief Complaint: Extremity Injury, Upper Stated Complaint: Injured finger r hand Time Seen by Provider: 04/01/25 08:51 Source: patient, RN notes reviewed and old records reviewed Mode of arrival: ambulatory Limitations: no limitations History of Present Illness HPI narrative: 35-year-old male presents to the [facility] with a distal injury to the 3rd finger right hand that occurred approximately 8:30 p.m. last night. Subungual hematoma noted. Full range of motion. Patient states that last night when this occurred got hit by a softball it bled a lot. Dry blood noted to around the nail bed and finger. No open wounds noted Last Td Patient is a diabetic. Continuous glucose monitor has some at 210, reports he had a [employer] breakfast when he was coming here. Related Data Home Medications ?Medication ?Instructions ?Recorded ?Confirmed ?Last Taken ?Type ascorbic acid (vitamin C) 500 mg 500 mg PO DAILY 01/19/23 04/01/25 08/11/24 History capsule cholecalciferol (vitamin D3) 50 50 mcg PO DAILY 01/19/23 04/01/25 08/11/24 History mcg (2,000 unit) capsule ferrous sulfate 325 mg (65 mg 325 mg PO DAILY 01/19/23 04/01/25 08/11/24 History iron) tablet (Feosol) multivitamin 1 tablet PO DAILY 01/19/23 04/01/25 08/11/24 History Allergies Allergy/AdvReac Type Severity Reaction Status Date / Time No Known Allergies Allergy Verified 04/01/25 08:43 Review of Systems Review of Systems: All systems reviewed & are unremarkable except as noted in HPI and below Constitutional: Constitutional: Reports no additional constitutional complaints Musculoskeletal: Musculoskeletal: Reports as per HPI Integumentary/Breasts: Skin/Breast: Reports as per HPI PMFSH Past Medical History Medical History Eosinophilic esophagitis Dysphagia Open fracture of right thumb Long-term insulin use Type 1 diabetes mellitus without complication Vitamin D deficiency 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 Surgical History Surgical History History of knee surgery History of shoulder surgery Family History Family History Other Diabetes mellitus Family history of malignant neoplasm Family history of migraine headaches Social History Social History Social History: Caffeine-coffee Smoking status: Never smoker Second hand tobacco smoke exposure: No Alcohol intake: current Drinks per week: 5 Alcohol use details: occasionally Substance use: never Substance use type: does not use Lack of Transportation: No Lack of Food: Never True Current Housing: I Have Housing Concerned About Future Housing: No Difficulty Paying Gas/Electric Bills: No Difficulty Paying for Meds: No Currently Unemployed: No Education: Bachelor's Degree Difficulty w/ Childcare or Family Care: No Living arrangements: with family Additional living arrangements comments: with Occupation/Education: occupation Gender identity (if verbalized by the patient): Male Sexual Orientation (if Verbalized by the Patient): Straight or Heterosexual Spiritual care concerns: No Comments At the time of my signature, I reviewed and agree with the nursing past medical, surgical, social, and family history. There is no relevant family history pertinent to the patient complaint. Exam Const: General: cooperative, healthy appearing, comfortable, no acute distress, well developed, alert and well nourished Nutritional Appearance: well nourished Orientation/consciousness: patient oriented x3 Limitations: no limitations HENMT: Head: normal to inspection Eyes: General: appearance normal, both eyes and all related structures Alignment and Position: alignment normal Neck: Neck: normal visual inspection, full ROM, no lymphadenopathy and no meningeal signs Chest: Chest palpation & inspection: normal inspection of the chest Resp: Effort & Inspection: normal respiratory effort and able to speak in complete sentences Cardio: Rate: regular rate Skin: General skin exam: normal color and no rashes or lesions noted Neuro: General: patient oriented x3, gait normal, moves all extremities and no meningeal signs Cognition (Neuro): normal cognition Speech: normal speech Gait exam (Neuro): Normal gait present Extrem: General: normal to inspection, full ROM, capillary refill normal and normal gait Right upper extremity: Extremity exam: right hand normal capillary refill, tenderness of the 3rd digit at the distal phalanx, at the nailbed and involving the fingernail, vascular exam radial pulse present and normal capillary refill, normal ROM of fingers, swelling of the 3rd digit at the distal phalanx and ecchymosis of the 3rd digit at the distal phalanx, at the nailbed and involving the fingernail Psych: Appearance: grossly normal and well kempt Mental Status: mental status grossly normal Speech and movement: Normal speech and movement present and Clear speech present Affect: normal affect Attitude: cooperative Course Course Level of Care: Express Care Visit Vital Signs Vital signs: Vital Signs Temperature 97.9 F 04/01/25 08:32 Pulse Rate 79 04/01/25 08:32 Respiratory Rate 16 04/01/25 08:32 Blood Pressure 137/81 04/01/25 08:32 Pulse Oximetry 99 04/01/25 08:32 Temperature 97.9 F 04/01/25 08:32 Pulse Rate 79 04/01/25 08:32 Respiratory Rate 16 04/01/25 08:32 Blood Pressure 137/81 04/01/25 08:32 Pulse Oximetry 99 04/01/25 08:32 Reviewed Procedures Nail Trephination Nail Trephination #1: Nail Trephination Date: 04/01/25 Nail Trephination Time: 09:30 Time out: Yes Location (finger): right and middle Sterile prep: betadine Method of drainage: nail cautery Procedure successful: Yes Patient tolerated procedure: well Nail Trephination Comment: Finger cleaned with Betadine. Procedure explained to patient, verbal consent obtained. Digital block performed, cautery tool able to make opening in nail. Blood was successfully drained. Patient tolerated procedure well MDM - Extremity Injury (Upper) MDM Narrative Medical decision making narrative: Patient sitting in exam room. Patient is nontoxic, vitals stable. Patient presents with a subungual hematoma and bruising noted to the distal finger. X-ray shows a nondisplaced distal phalanx fracture. Subungual hematoma drained using a digital block and cautery. Patient tolerated procedure well. Metal splint placed. Referral to hand Patient is appropriate for outpatient treatment and close follow-up Discharge instructions reviewed with patient, as well as provided in writing per nursing staff. The instructions also include specific and strict return/GO TO THE ER as well as f/u information. All questions have been answered, and the patient deny any further questions with discharge and discharge plan. Some parts of this dictation were generated by voice recognition software and may contain typographical and/or grammatical inaccuracies. Differential Diagnosis Differential diagnosis: Likely other (Finger contusion, subungual hematoma, finger fracture) Imaging Data Radiologist's impression: EXAMINATION: XR finger 3rd RT min 2V, 04/01/2025 9:03 CDT HISTORY: soft ball injury. pain distal, pain since last night COMPARISON: No comparisons available. Findings: Nondisplaced fracture distal aspect distal phalanx No significant degenerative changes. Soft tissues unremarkable. Impression: Fracture detailed above Critical Care Time Critical Care Time Critical Care Time: No Discharge Plan Discharge Clinical Impression: Subungual hematoma Fracture of distal phalanx of finger Qualifiers: Encounter type: initial encounter Finger: middle finger Fracture type: closed Fracture alignment: nondisplaced Laterality: right Qualified Code(s): S62.662A - Nondisplaced fracture of distal phalanx of right middle finger, initial encounter for closed fracture Patient Disposition: Home Condition: Stable Instructions: Antibiotic Form, Subungual Hematoma (ED), Finger Fracture (ED) Additional Instructions: Rest, ice and elevate every 2-3 hours for 15-20 minutes while awake Take Motrin alternating with Tylenol as needed for pain Wear the splint, can removed to wash hands. Keep area clean and dry. Keep covered, may drain for the next 2-3 days, this is normal. Take antibiotics as prescribed Follow-up with Dr. Meehan to make sure proper healing Follow-up with primary care provider as needed New or worsening symptoms go directly to the emergency room Patient Language: Occitan Prescriptions: New amoxicillin-pot clavulanate 875-125 mg tablet 1 tablet PO Q12H Qty: 20 0RF No Action (DME) blood ketone glucose monitor Kit See Rx Instructions .ROUTE .MEDSUPPLY Qty: 1 3RF Rx Instructions: As directed (DME) blood-glucose meter Misc See Rx Instructions .ROUTE .MEDSUPPLY Qty: 1 0RF Rx Instructions: As directed (DME) lancets [BD Ultra Fine Lancets] 33 gauge misc See Rx Instructions .ROUTE .MEDSUPPLY Qty: 300 6RF Rx Instructions: As directed cholecalciferol (vitamin D3) 50 mcg (2,000 unit) capsule 50 mcg PO DAILY ascorbic acid (vitamin C) 500 mg capsule 500 mg PO DAILY multivitamin Tablet 1 tablet PO DAILY ferrous sulfate [Feosol] 325 mg (65 mg iron) tablet 325 mg PO DAILY glucagon 3 mg/actuation spray,non-aerosol 3 mg intranasal ONCE Qty: 2 4RF Rx Instructions: as a single dose; may repeat once in 15 minutes if no response insulin lispro [Humalog U-100 Insulin] 100 unit/mL solution See Rx Instructions .ROUTE .COMPLEX Qty: 90 3RF Dose Instruction: INJECT 100 UNITS VIA CONTINUOUSLY UNDER THE SKIN INFUSION DAILY Rx Instructions: INJECT 100 UNITS VIA CONTINUOUSLY UNDER THE SKIN INFUSION DAILY (DME) OneTouch Verio test strips Strip See Rx Instructions .ROUTE .MEDSUPPLY Qty: 100 0RF Rx Instructions: Check glucose 3-4 times a day (DME) lancets [OneTouch Delica Plus Lancet] 33 gauge misc See Rx Instructions .ROUTE .MEDSUPPLY Qty: 100 5RF Rx Instructions: Check glucose 3-4 times a day (DME) urine glucose-ketones test Strip See Rx Instructions .ROUTE .MEDSUPPLY Qty: 50 0RF Rx Instructions: As directed (DME) blood-glucose meter [OneTouch Verio Flex Start] Kit See Rx Instructions .Route Qty: 1 0RF Rx Instructions: Use to check glucose 3-4 times daily (DME) Omnipod 5 G6-G7 Pods (Gen 5) Cartridge See Rx Instructions .ROUTE .MEDSUPPLY Qty: 60 2RF Rx Instructions: Change every 36hours (DME) Dexcom G7 Sensor Device See Rx Instructions .ROUTE .MEDSUPPLY Qty: 9 3RF Rx Instructions: Use to monitor glcuose Dupixent Pen 300 mg/2 mL pen injector 300 mg subcut WEEKLY Qty: 4 11RF insulin degludec [Tresiba FlexTouch U-200] 200 unit/mL (3 mL) insulin pen 30 unit subcut DAILY PRN (Reason: insulin pump malfunction) Qty: 9 1RF Follow-up/Referrals: Nikkie Ledezma MD [Physician, Plastic Surgery] - 3 Days Clinical Impression: Fracture of distal phalanx of finger; Subungual hematoma PHYSICIAN,SALES ESTIMATOR [Primary Care Provider, Internal Medicine] Stand Alone Forms: Work/School Release IP Time of Disposition: 09:41
[2025-04-01] MEDS: LIDOCAINE 1% LOCAL INJ 2 ML AMPUL 4 ML INFILTRATE (09:21)
== END 2025-04-01 09:56 | disposition home or self-care (01) ==
PROVIDERS: Emergency Provider Nurse Practitioner
DX: S62.662A Nondisplaced fracture of distal phalanx of right middle finger, initial encounter for closed fracture (principal); S60.131A Contusion of right middle finger with damage to nail, initial encounter; E10.9 Type 1 diabetes mellitus without complications; Z79.899 Other long term (current) drug therapy; W21.03XA Struck by baseball, initial encounter
CPT/HCPCS: 11740; 73140; 99214; G0463; J2003